=== PATIENT | male | born 1980 | race Hispanic/Latino ===

== ENCOUNTER → 2017-02-18 | Outpatient (CLI) | payer OTHER ==
--- NOTE | 2017-02-18 12:14 | REP ---
Clinical: Pain. Technique: Neutral and frog lateral views of the right hip. Findings: No acute fracture dislocation. Skeletal structures, joint spaces, and surrounding soft tissues are normal. No overt arthritic degenerative changes appreciated. Impression: Normal right hip radiographs. Signed by Royer Carty MD 02/18/2017 09:31 A
== END ==
LOC: M RAD 08:54
PROVIDERS: ATTEND Surgery
DX: M25.551 Pain in right hip (principal)

== ENCOUNTER → 2017-05-10 | Outpatient (REF) | payer OTHER ==
[2017-05-10 10:56] LABS: BLOOD UREA NITROGEN 22 MG/DL (7-18); GLOMERULAR FILTRATION RATE > 60.0 (>60)
== END ==
LOC: M LAB REF 10:12
PROVIDERS: ATTEND Surgery
DX: M54.9 Dorsalgia, unspecified (principal)